=== PATIENT | male | born 1940 | race African-American/Black ===

== ENCOUNTER 2019-03-04 19:49 | Inpatient (IN) ==
--- NOTE | 2019-03-04 20:12 | Diag Imaging Result Doc PS360 ---
CT HEAD W/O CONTRAST - 03/04/2019 INDICATION: poss cva COMPARISON: None FINDINGS: There is some mild periventricular cerebral white matter chronic microvascular disease. The ventricles and sulci are normal in size and contour. No intracranial mass or hemorrhage. There is sinusitis of the left maxillary sinus. No skull fracture. There is heavy vascular disease of the carotid siphons bilaterally. 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 Sinusitis. No acute process. This exam was performed using automated exposure control, adjustment of mA or kV according to patient size, and/or use of iterative reconstruction technique Electronically signed by William Cat 03/04/2019 8:10 PM
[2019-03-04] MEDS ORDERED: D50W SYRINGE IV ONE ×3 (20:24→23:15)
[2019-03-04] MEDS ORDERED: D5 NS 1,000 ML IV ONE (20:26)
--- NOTE | 2019-03-04 21:28 | Diag Imaging Result Doc PS360 ---
CHEST-PORTABLE - 03/04/2019 INDICATION: cva COMPARISON: None FINDINGS: There is cardiomegaly. There are some ill-defined interstitial infiltrates in the lung bases. There is an indeterminate curvilinear opacity at the right suprahilar region. No pneumothorax or large pleural effusion. IMPRESSION: 1. Cardiomegaly. Ill-defined interstitial markings in the lung bases. This may represent mild edema, fibrosis, or bronchitis. 2. Indeterminate curvilinear density in the right suprahilar region. 3. Recommend a chest CT for further evaluation. Electronically signed by William Cat 03/04/2019 9:26 PM
[2019-03-04 22:08] LABS: ALB/GLOB RATIO 1.2; ALBUMIN 4.5 g/dL (3.5-5.0); CALCIUM 9.1 mg/dL (8.8-10.2); CREATININE 1.5 mg/dL (0.7-1.2); POTASSIUM 4.7 mmol/L (3.5-5.1); TOTAL BILIRUBIN 0.15 mg/dL (0.20-1.00); TOTAL PROTEIN 8.3 g/dL (6.3-8.3)
[2019-03-04 22:13] LABS: BASO# 0.12 X1000 (0.0-0.2); BASO% 1.2 % (0.0-0.8); EOS# 0.19 X1000 (0.0-0.7); EOS% 1.9 % (0.0-10.0); HEMATOCRIT 35.2 % (42.0-52.0); HEMOGLOBIN 11.8 g/dL (14.0-18.0); IMM GRAN# 0.02 X1000 (0.0-0.04); IMM GRAN% 0.2 % (0.0-0.5); LYMPH# 1.56 X1000 (1.2-3.4); LYMPH% 15.6 % (20.5-51.1); MCH 30.9 PG (27-31); MCHC 33.5 g/dL (33-37); MCV 92.1 FL (81-99); MONO# 0.69 X1000 (0.11-0.59); MONO% 6.9 % (1.7-9.3); NEUT# 7.44 X1000 (1.4-6.5); NEUT% 74.2 % (42.2-75.2); PLT 240 X1000 (130-400); RBC 3.82 XMIL (4.7-6.1); RDW 14.2 % (11.5-14.5); WBC 10.02 X1000 (4.8-10.8)
[2019-03-05 00:44] LABS: URINE SOURCE CLEAN CATCH
[2019-03-05 00:50] LABS: BILIRUBIN URINE NEGATIVE (NEGATIVE); BLOOD URINE NEGATIVE (NEGATIVE); COLOR YELLOW; GLUCOSE URINE TRACE mg/dL (NEGATIVE); KETONE URINE NEGATIVE (NEGATIVE); LEUKOCYTES URINE NEGATIVE (NEGATIVE); NITRITE URINE NEGATIVE (NEGATIVE); PROTEIN URINE TRACE mg/dL (NEGATIVE); SP GRAVITY URINE 1.013; TURBIDITY URINE CLEAR (CLEAR); UR EPITHELIAL CELLS <10 /HPF (<10); URINE BACTERIA NEGATIVE /HPF; URINE RBC <10 /HPF (<10); URINE WBC <10 /HPF (<10); UROBILINOGEN URINE NORMAL (NORMAL)
[2019-03-05 01:14] LABS: BE -4.1 mmoll (-2.0-2.0); BLOOD TYPE VENOUS; HCO3-(ACT) 21.6 mmoll (22-27); PCO2(98.6) 30 mmHg (40-60); PO2(98.6) 59 mmHg (30-55); SAMPLE BLOOD; SAO2 93.9 % (40.0-85.0); pH(98.6) 7.42 (7.32-7.43)
[2019-03-05] MEDS ORDERED: TYLENOL PO PRN (05:32)
[2019-03-05] MEDS ORDERED: ZOFRAN IV PRN (05:32)
[2019-03-05] MEDS: PRILOSEC PO SCH ×2 (06:24→19:01)
--- NOTE | 2019-03-05 07:14 | EKG Report ---
Test Performed on : 03/04/2019 8:37:31 PM Test Reason : cva Blood Pressure : / mmHG Vent. Rate : 072 BPM Atrial Rate : 072 BPM P-R Int : 224 ms QRS Dur : 086 ms QT Int : 416 ms P-R-T Axes : 058 000 073 degrees QTc Int : 455 ms Sinus rhythm. with 1st degree AV block. Moderate voltage criteria for LVH, may be normal variant Nonspecific T wave abnormality Abnormal ECG No previous ECGs available Unconfirmed Result
[2019-03-05 07:22] LABS: BASO# 0.13 X1000 (0.0-0.2); BASO% 1.6 % (0.0-0.8); EOS# 0.19 X1000 (0.0-0.7); EOS% 2.3 % (0.0-10.0); HEMATOCRIT 33.5 % (42.0-52.0); HEMOGLOBIN 11.2 g/dL (14.0-18.0); IMM GRAN# 0.02 X1000 (0.0-0.04); IMM GRAN% 0.2 % (0.0-0.5); LYMPH# 2.24 X1000 (1.2-3.4); LYMPH% 26.9 % (20.5-51.1); MCH 30.8 PG (27-31); MCHC 33.4 g/dL (33-37); MONO# 0.51 X1000 (0.11-0.59); MONO% 6.1 % (1.7-9.3); MPV 11.3 FL (7.4-10.4); NEUT# 5.25 X1000 (1.4-6.5); NEUT% 62.9 % (42.2-75.2); PLT 235 X1000 (130-400); RBC 3.64 XMIL (4.7-6.1); WBC 8.34 X1000 (4.8-10.8)
[2019-03-05 07:50] LABS: AGAP 13; BUN 23 mg/dL (8-22); CALCIUM 8.6 mg/dL (8.8-10.2); CHLORIDE 101 mmol/L (98-107); COSMO 278; CREATININE 1.3 mg/dL (0.7-1.2); ESTIMATED GFR > 60; GLUCOSE 132 mg/dL (70-104); POTASSIUM 4.6 mmol/L (3.5-5.1); SODIUM 136 mmol/L (136-145); TCO2 22 mmol/L (25-35)
[2019-03-05] MEDS: FISH OIL CONCENTRATE PO SCH (09:05)
[2019-03-05] MEDS: VASOTEC PO SCH ×2 (09:05→20:14)
[2019-03-05] MEDS: ASPIRIN EC PO SCH (09:05)
[2019-03-05] MEDS: COREG PO SCH ×2 (09:05→20:14)
[2019-03-05] MEDS: FERROUS SULFATE PO SCH (09:05)
[2019-03-05] MEDS ORDERED: LASIX IV ONE (09:12)
--- NOTE | 2019-03-05 09:33 | PROGRESS NOTE ---
DATE: 03/05/2019 SUBJECTIVE: The patient says he feels much better now. He came in with hypoglycemia. He had confusion with this. He had a CT scan of the head, which was essentially normal. He is doing much better since his blood sugars have improved. However, on chest x-ray, there was cardiomegaly and ill-defined interstitial markings in the lung bases which may represent edema, fibrosis or bronchitis. They recommended a CT scan of the chest for further evaluation. OBJECTIVE: Vital Signs: Blood pressure is 152/57, respirations 18, pulse 83, and temperature 97.8 degrees Fahrenheit. HEENT: Normocephalic. EOMs intact. PERRLA. Throat clear. Lungs: Sound clear to auscultation. Heart: Regular rate and rhythm without murmurs, gallops, or friction rubs. Abdomen: Soft. Active bowel sounds. No organomegaly or tenderness. Neurologic: Intact grossly. He does have a 2+ pitting edema of the lower extremities, but he is on Procardia XL. This has been chronic however. ASSESSMENT: 1. Hypoglycemia. 2. Altered mental status. 3. Diabetes mellitus. 4. Peripheral vascular disease. 5. History of colon cancer. 6. Abnormal chest x-ray. 7. Hypertension. 8. Hyperlipidemia. PLAN: We will get a CT scan of his chest as recommended by Radiology, and we will get an echocardiogram. cc: Abel Springer Jr, MD
[2019-03-05] MEDS: HUMULIN R SUBQ SCH ×2 (11:45→17:37)
--- NOTE | 2019-03-05 12:38 | Diag Imaging Result Doc PS360 ---
EXAM: CT THORAX W/O CONTRAST 03/05/2019 HISTORY: Infiltrates TECHNIQUE: This exam was performed using automated exposure control, adjustment of mA or kV according to patient size, and/or use of iterative reconstruction technique. COMMENT: There are no previous CT examinations available for comparison. There is some ill-defined opacity in the anterior left lower lobe. There is also some ill-defined opacity in the inferior portion of the lingula. The possibility of a mild bronchopneumonia cannot be excluded. There is a partially groundglass opacity in the superior segment of the left lower lobe and a small nodule adjacent to the major fissure in the left upper lobe on image 61. Some calcified granulomata are present in the right upper lobe and left lower lobe. There is air: Pulmonary window adenopathy with a 16 mm node. There are calcified nodes in the right hilum. No evidence of acute disease is demonstrated in the visualized portion of the abdomen. There is a hiatal hernia. IMPRESSION: Minimal opacities in the inferior lingula and left lower lobe. The possibility of mild bronchopneumonia cannot be excluded. Electronically signed by Parker Arenas 03/05/2019 12:35 PM
[2019-03-05] MEDS: ROCEPHIN 1 GM in NS 50 ML IV SCH (17:38)
--- NOTE | 2019-03-05 22:30 | ECHO REPORT ---
ORDER DATE: 03/05/2019 MEASUREMENTS: Septal thickness 1.0. Left ventricular internal diameter in diastole 4.5. Left atrium 4.0. SUMMARY: 1. Technically difficult study due to limited acoustic window quality. Intravenous echo contrast agent Optison was utilized to enhance endocardial definition. 2. Aortic valve is trileaflet and demonstrates very mild sclerosis. Aortic valve opening appears normal. Peak gradient across aortic valve is less than 10 mmHg. Mitral and tricuspid valves are without evidence of structural abnormality with trace mitral regurgitation and trace tricuspid regurgitation. Pulmonic valves not well demonstrated. The aortic root is normal in size. 3. Normal left ventricular dimensions demonstrated. Estimated left ejection fraction appears to be at least 65%. No regional wall motion abnormalities are demonstrated. Doppler suggests grade 1 left ventricular diastolic dysfunction. Left atrium is borderline enlarged. Right atrium and right ventricle are normal in size with normal right ventricular systolic function. 4. No pericardial effusion. 5. Inferior vena cava not well demonstrated. cc: MD Abel Smith Jr, MD
[2019-03-06] MEDS: HUMULIN R SUBQ SCH ×2 (02:38→06:35)
[2019-03-06] MEDS: ROCEPHIN 1 GM in NS 50 ML IV SCH (04:39)
[2019-03-06] MEDS: PRILOSEC PO SCH (06:25)
[2019-03-06 07:55] VITALS: BP 154/64
[2019-03-06] MEDS: FISH OIL CONCENTRATE PO SCH (09:06)
[2019-03-06] MEDS: FERROUS SULFATE PO SCH (09:06)
[2019-03-06] MEDS: VASOTEC PO SCH (09:06)
[2019-03-06] MEDS: COREG PO SCH (09:06)
[2019-03-06] MEDS: ASPIRIN EC PO SCH (09:06)
--- NOTE | 2019-03-07 10:36 | DISCHARGE SUMMARY ---
ADMISSION DATE: 03/05/2019 DISCHARGE DATE: 03/06/2019 SUBJECTIVE: The patient was brought to the emergency room with altered mental status and hypo glycemia is. The lowest blood sugar we had here at the hospital was 59. He was given sugar in the emergency room but was slow to respond and was felt that there could possibly at BT other factors. CT scan of the head at that time was normal. He was admitted to the hospital because of altered mental status. This did clear up after he was in the hospital fairly quickly and blood sugars normalized. He is on insulin. Chest x-ray did show some bilateral small infiltrates though he has had only a small amount cough and no fever, no production with his cough. However. Radiology recommended a CT scan of the chest. This was done. He possibly, according to the scan, has very mild bronchopneumonia. White count has remained normal. So clinically he does not seem to have significant pneumonia but he was placed on IV antibiotics and will be discharged on antibiotics. The patient did complain of some swelling in his feet but he is on Procardia XL. I have explained to him that is probably that medication. We did go ahead and do an echocardiogram just to make sure there was no heart failure as we know he has had a history of vascular disease and that was essentially normal. It should also be noted the patient had a history of colon cancer. That was another reason to do the CT scan of the chest but none of the findings looked like metastasis. The patient's blood sugars have been maintained. He is doing better. PHYSICAL EXAMINATION: Vital Signs: Stable. HEENT: Normocephalic. EOMs intact. PERRLA. Throat clear. Lungs: Sound clear to auscultation and percussion without rhonchi, rales, or wheezes. Heart: Regular rate and rhythm without murmurs, gallops, friction rubs. Abdomen: Soft. Active bowel sounds. No organomegaly or tenderness. Neurologic: Intact grossly. ASSESSMENT: 1. Hypoglycemia. 2. Diabetes mellitus adult onset, now on insulin. 3. History of vascular disease. 4. History of colon cancer. 5. Gouty arthritis. 6. Hyperlipidemia. 7. Hypertension. 8. Mild edema 2+ in his lower extremities. PLAN: We will discharge him on his home medications plus Augmentin 875 mg p.o. b.i.d. for 10 days. We will see him back in the office next week on Saturday or with a chest x-ray, a CBC and a 2 hour postprandial chemistry profile. Will re-evaluate the swelling in his feet at that time. At this time we will not change his insulin dosage as he has been on that dosage for some time without problems but if he continues to have any hypoglycemia we will adjust. We have warned him to be careful for the next few days especially and keep something sweet with him. cc: Abel Springer Jr, MD
--- NOTE | 2019-03-11 09:06 | HISTORY AND PHYSICAL ---
PRIMARY CARE PROVIDER: DR. Springer. CHIEF COMPLAINT: Altered mental status. HISTORY OF PRESENT ILLNESS: Mr. Vasquez is a known diabetic. He was found by his on the floor at their house. She did note that he had all his fingerstick blood sugar testing equipment out, and his glucometer. She reports that she could not get him to respond. He was noted to be hypoglycemic on the scene, and maybe give him what I understand D50 or D10 prior to arrival though even on arrival to the ER his fingerstick blood sugar was 26. Since that time, he has been given a couple more doses of D50, and his mentation did improve enough that he was awake enough to safely eat a meal as well. Since that time, his mentation has improved to the point that it is back at his baseline. His encephalopathy has completely resolved. He is alert and oriented to person, place, time, and situation. The patient does not remember passing out or the ride in the ambulance though he states that he had been taking his insulin as prescribed. The patient reports that he has been eating like he normally has though he did begin to feel bad. He stated that he was trying to get his equipment out to check his fingerstick blood sugar though unfortunately he states that he must have passed out before that happened. The patient and patient's state that since Saturday he has not felt well. He was actually in DR. Springer's office on Saturday for a routine check up though he reports that for 2 days now he has had diarrhea that is light brown to yellowish in color though yesterday afternoon and since his arrival to the ER he has not had any further episodes. He denies any recent travel or being around anyone with the same symptoms. The patient also has been reporting some long-standing exertional dyspnea. He states this has been going on for several months. He denies being short of breath at rest. He denies any cough. He also denies any chest pain. He denies any dizziness or lightheadedness. He denies any abdominal pain or nausea or vomiting. He denies any previous history of having diverticulitis or colitis. The patient has had a history of colon cancer status post a colon resection. He denies any dysuria or urinary frequency though the patient does report that for quite some time now he has had bilateral lower extremity edema, and muscle aches and muscle cramps. The patient states that he did notice this for quite some time ago after he had started some new medicines. The patient denied any recent dosage changes to his diabetic medications. Upon evaluation in the ER, I did perform a CT head without contrast which showed a mild chronic microvascular disease of the cerebral white matter and sinusitis with no acute process. Chest x-ray did show cardiomegaly and ill defined interstitial markings of the lung bases. This may represent mild edema, fibrosis and bronchitis. He also had an indeterminate curvilinear density in the right suprahilar region. The radiologist did recommend a CT for follow up. EKG shows sinus rhythm with first degree AV block at a rate of 72 with a QTC of 455. The patient will be placed for inpatient admission for further treatment and evaluation of his hypoglycemia given that the patient does take short-acting and long-acting insulin. REVIEW OF SYSTEMS: A 14 point review of systems was conducted with the patient, and all were negative except for pertinent positives,mentioned above in HPI. PAST MEDICAL HISTORY: 1. Diabetes mellitus. 2. Hyperlipidemia. 3. Hypertension. 4. History of colon cancer status post colon resection. 5. Gout. 6. Chronic kidney disease. PAST SURGICAL HISTORY: 1. Colon resection in 2001. 2. 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 SOCIAL HISTORY: The patient is a former smoker. He did quit smoking in 2001 though had some since age 15. Prior to this, two packs per day. There is no known alcohol or illicit drug use. He is . He does live with his . She was present at bedside. FAMILY HISTORY: Positive for his brother having a history of respiratory and heart disease though he does not know his mother or father's past medical history due to the fact that he when he was a very young age. ALLERGIES: The patient has no known allergies. HOME MEDICATIONS: 1. Allopurinol 300 mg p.o. daily. 2. Aspirin 325 mg p.o. daily. 3. Carvedilol 20 mg p.o. b.i.d. 4. Enalapril 20 mg p.o. b.i.d. 5. Ezetimibe 10 mg p.o. daily. 6. Fenofibrate 150 mg p.o. daily. 7. Ferrous Sulfate 320 mg p.o. daily. 8. Gabapentin 600 mg p.o. t.i.d. 9. Glimepiride 4 mg p.o. b.i.d. 10. Indapamide 2.5 mg p.o. daily. 11. NovoLog flex pen 35 units subcutaneously b.i.d. 12. Levemir Flex Touch 60 units subcutaneous at bedtime. 13. Glucophage extended release 500 mg p.o. b.i.d. 14. Nifedipine extended release 90 mg p.o. daily. 15. Fish Oil 1000 mg soft gel 1 p.o. daily. 16. Prilosec 20 mg p.o. b.i.d. 17. Pravachol 80 mg p.o. at bedtime. DIAGNOSTIC DATA/LABORATORY RESULTS: 1. White blood cell count is 10,020, hemoglobin 11.8, hematocrit 35.2, platelet count 240,000. Sodium 139, potassium 4.7, chloride 103, serum bicarb was 22. BUN is 27 and creatinine 1.5 with a GFR of 54, and glucose 69 though this has since improved with the last reading of 164 on fingerstick blood sugar. Calcium 9.1. Magnesium 1. Liver function tests were within normal limits. Troponin was less than 0 1. ProBNP was 144. Urinalysis was obtained, was positive for protein, but was negative for glucose, ketones, blood, nitrites, leukocytes, white blood cells, or bacteria. 2. EKG showed sinus rhythm, first-degree AV block at a rate of 72 with a QTC of 455. 3. CT head without contrast showed mild chronic microvascular disease of the cerebral white matter. 4. Sinusitis. No acute process. This is per Radiology. 5. Chest x-ray showed cardiomegaly. Ill defined interstitial markings in the lung bases. This may represent mild edema or fibrosis or bronchitis. There is an indeterminate curvilinear density in the right suprahilar region. Radiologist did recommend chest CT for further evaluation. PHYSICAL EXAMINATION: VITAL SIGNS: Temperature 98 degrees, heart rate 71, blood pressure 135/68, and oxygen saturation 97% on room air, respirations were 20. GENERAL: Mr. Vasquez is a pleasant, 79-year-old male who was resting on the ER stretcher. He is in no acute distress. He was awake, alert and oriented 4, and able to answer questions and follow commands appropriately. HEENT: Head is atraumatic, normocephalic. Pupils are equal, round, and reactive to light, were 3 mm bilaterally and brisk. Oral mucosa is moist. Oropharynx clear. NECK: Supple. Trachea midline. There does not appear to be any overt JVD noted. There is no hepatojugular reflux present. LUNGS: Sounds were clear to auscultation in bilateral upper godinez, though he did have some slight crackles noted in the left lung base. ABDOMEN: Soft. This does appear to be slightly distended. The patient does have a protuberant abdomen. He did not report any tenderness upon palpation. Bowel sounds are present and all 4 quadrants were normoactive. EXTREMITIES: No cyanosis noted, though the patient does have edema noted bilateral lower extremities from approximately knees down. This is 1 to 2+ pitting edema. This does seem to be a little worse in his left foot that he states that he has had swelling in his left foot like this since he had his toe amputation. Radial and pedal pulses are 2+ bilaterally. INTEGUMENTARY: Skin color is normal for his race, dry and intact. NEUROLOGIC: The patient is alert and oriented x4. He is able to move all extremities. ASSESSMENT AND PLAN: 1. Hypoglycemia. We suspect this is likely related to possible over medication of the patient's insulin. He stated that prior to being found on the floor by his that he had taken his insulin, and he began to feel bad. He said he had gotten up and was trying to get his glucometer out to check his sugar, and then that is the last thing he remembered. CT of the head was negative for any acute intracranial abnormality. He did receive some administration of IV D50 a couple of doses in the ER, and then was awake enough to eat a meal. Since that time, he is maintaining adequate fingerstick blood sugars in the 150s to 160s. We will hold his diabetic medications. We will do pattern fingerstick blood sugars, and we will closely monitor and once his glucose levels have stabilized we will implement a sliding scale insulin and then slowly transition him back to his regular medicines, and monitor for any adjustments that may need to be made. 2. Encephalopathy. Prior to arrival on arrival to the ER which is now completely resolved likely related to his hypoglycemia. The patient is back to his baseline mentation. He is alert and oriented x4. He is answering some questions and following commands appropriately. We will continue to follow closely. 3. Diabetes mellitus. We will continue treatment as mentioned above for #1. 4. Hypertension. We have continued some of the patient's antihypertensive medications such as Coreg and Vasotec though we have held some of his other ones given that the patient has been reporting some bilateral lower extremity edema and muscle aches and cramps. The patient and some of these symptoms could be secondary to some of his medications. 5. Bilateral lower extremity edema. The patient denies any known history of congestive heart failure though he is reporting exertional dyspnea, he has had pitting edema in bilateral extremities. He does have some crackles in his left lung base. He did have cardiomegaly noted on his chest x-ray. ProBNP was not elevated. Looking back in the patient's old record, it looks like his EF was noted to be 55 and 60 percent though this was an echocardiogram that was performed many years ago. I do feel like there is enough symptoms to warrant the patient being re-evaluated for possible heart failure at least an echocardiogram though given the patient is Dr. Springer's patient and he will be taking back over his care this morning, we will let him make that decision as well as any further diagnostic studies to evaluate for this. As previously mentioned, the patient is denying any chest pain at this time and cardiac enzymes have been negative. 6. Diarrhea. The patient did report a 2-day history of diarrhea though he states that since yesterday afternoon and since arrival to the ER, this has not occurred again. If this does continue, the patient may need stool studies performed. 7. There were findings of the indeterminate curvilinear density in the right suprahilar region. Given this as well as patient's x-ray did show some interstitial markings in the lung bases, this may represent mild edema. Recommend he do have a CT of the chest for further evaluation. This can be performed inpatient or can be done outpatient as well. Dr. Springer will be taking back over his care this morning and we will allow him to make this decision for further evaluation of his x-ray findings. 8. The patient has been placed on the medical floor of telemetry. He will have vital signs q.4 h with strict input. We will repeat a CBC and BMP this morning. He will be on a diabetic diet. I would also like to add that given that the patient was altered upon arrival to the ER, they did initially sign him in as a [facility]. Though when he was registered, he was given a new medical record like he had not had a previous visit at this facility. Upon questioning the patient, he was telling me that he had had previous surgeries here though I was unable to find any record of this under his medical record number. We did do another search under the patient's name and found that he had accidentally been registered under a new medical record number instead of his on the previous one. The medical records have been notified and they are working on merging the charts at this time. Further orders and recommendations pending hospital course, diagnostic studies and physician evaluation. Dictated by REG Faye for Kings Neff MD cc: MD Abel Velasco Jr, MD
== END 2019-03-06 09:26 | disposition home or self-care (01) | DRG 637 ==
LOC: SUPCPDRO → EDBD → ED 19:49 → 3N 03-05 04:36 → SUATTDRO 03-05 04:36 → MERGE 03-05 04:36
PROVIDERS: ADMIT Emergency Medicine; ATTEND Emergency Medicine
CPT/HCPCS: 70450; 71010; 71045; 71250; 80048; 80053; 81001; 82805; 82948; 83605; 83735; 83880; 84439; 84484; 85025; 93005; 93306; 94761; 94799; 96365; 96366; 96375; 96376; 99285; A9270; C8929; J0696; J1940; J7042; Q9957; XXXXX